=== PATIENT | female | born 1980 | race Caucasian/White ===

== ENCOUNTER 2016-05-11 12:31 | Emergency (ER) | payer SELFPAY ==
[2016-05-11 13:03] LABS: URINE BILIRUBIN NEGATIVE (NEGATIVE); URINE BLOOD TRACE (NEGATIVE); URINE GLUCOSE (UA) NEGATIVE (NEGATIVE); URINE LEUKOCYTE ESTERASE TRACE (NEGATIVE); URINE NITRITE NEGATIVE (NEGATIVE); URINE PROTEIN 1+ (NEGATIVE); URINE UROBILINOGEN 1 mg/dL (0-1 mg/dl)
[2016-05-11 13:06] LABS: URINE APPEARANCE CLEAR; URINE COLOR AMBER
[2016-05-11 13:07] LABS: HCG,QUALITATIVE URINE NEGATIVE
[2016-05-11] MEDS ORDERED: HYDROMORPHONE HCL 1 MG/ML SYRINGE ONE (13:09)
[2016-05-11] MEDS ORDERED: ONDANSETRON 4 MG/2ML 2 ML VIAL ONE (13:09)
[2016-05-11] MEDS ORDERED: LACTATED RINGERS 1,000 ML ONE (13:09)
[2016-05-11 13:16] LABS: URINE WBC 20-30 /hpf
[2016-05-11 13:17] LABS: URINE BACTERIA FEW
[2016-05-11 13:52] LABS: ABSOLUTE NEUTROPHIL COUNT 10.6 K/mm3 (1.8-7.7); BASO % 0.2 % (0.2-1.0); EOS % 0.1 % (0.9-2.9); HEMATOCRIT 38.5 % (37.0-47.0); HEMOGLOBIN 11.8 gm/l (12.0-16.0); IMM NEUT # 0.1 K/mm3 (0-0.2); IMM NEUT% 0.5 % (0-1); LYMPH # 1.2 (1.0-4.8); LYMPH % 9.3 % (15-45); MEAN CELL VOLUME 76.1 fl (81.0-99.0); MEAN CORPUSCULAR HEMOGLOBIN 23.3 pg (27.0-31.0); MEAN CORPUSCULAR HGB CONC 30.6 g/dl (33.0-37.0); MEAN PLATELET VOLUME 9.4 fl (7.4-10.4); MONO # 0.9 (0.0-0.8); MONO % 7.3 % (4-12); NEUT % 82.6 % (43-75); PLATELET COUNT 350 K/mm3 (130-400); RED CELL DISTRIBUTION WIDTH 14.3 % (11.5-14.5)
[2016-05-11 14:00] LABS: ALBUMIN 3.9 gm/dL (3.5-5.7); CALCIUM 9.2 mg/dL (8.6-10.3)
--- NOTE | 2016-05-11 14:20 | US ---
ABDOMINAL-LIMITED: 05/11/2016 1:29 PM CLINICAL HISTORY: Right upper quadrant pain extending to back for 3 days. Fever and nausea. Patient last ate at 0800 hours today. STUDY: Limited right upper quadrant ultrasound COMPARISON: none FINDINGS: Gallbladder: Wall thickness: Normal Cholelithiasis: none Pericholecystic Fluid: none Sonographic Boateng's Sign: Equivocal given pain medicine administration. Bile ducts: Common bile duct measures 3 mm. Limited visualized Liver and RUQ structures: normal IMPRESSION: No sonographic findings of cholelithiasis or acute cholecystitis as above. Report was uploaded to the electronic medical record at approximately 1416 hours on 05/11/2016.
--- NOTE | 2016-05-11 15:54 | CT ---
ABD/PELVIS W/O CON: 05/11/2016 3:22 PM INDICATION: Right flank pain since 05/09/2016. COMPARISON: Right upper quadrant ultrasound earlier on the same day. TECHNIQUE: Contiguous 3 mm transaxial images from a [id number] [address] scanner were obtained from the lung bases through the pubic symphysis without oral or intravenous contrast. Multiplanar images were created at the CT scanner. CT DI: 5.4 DLP: 281.3 FINDINGS: Lung base: Dependent and atelectatic changes are present at the lung bases. There is no pericardial effusion.. This examination is limited for the evaluation of solid organs and vascular structures due to the lack of intravenous contrast which is standard for urinary calculus assessment CT. Liver: Multiple hypodensities are present within the liver. Largest is seen within the lateral segment left lobe on axial image 23 measuring 1.4 x 1.2 cm. Findings are nonspecific though in a patient of this age cyst or hemangioma is most likely the cause of these hypodensities.. Gallbladder: Normal Spleen: Normal. Pancreas: Normal. Adrenal Glands: Normal. Right kidney & ureter: - Calculi - No . - Ureter Calculi - No. - Obstruction / hydronephrosis - No Left kidney & ureter: - Calculi - No . - Ureter Calculi- No . - Obstruction / hydronephrosis - No The unopacified stomach and bowel is within normal limits. Appendix is normal. No lymphadenopathy is seen in the abdomen or pelvis No free fluid in the abdomen or pelvis. Uterus and adnexa are unremarkable. Urinary bladder: -Bladder Calculi- No . - Bladder is distended adequately. - Wall is thin. Bone windows- No lytic or sclerotic lesions. Spine maintains anatomic alignment. IMPRESSION: 1. No urinary tract calculi. 2. Non-contrast evaluation of the abdomen and pelvis is otherwise notable for multiple hypodensities scattered throughout the liver. Findings are nonspecific given the lack of IV contrast though patient of this age statistically cyst or hemangioma would be expected. Ultrasound would be recommended for further assessment as an outpatient. Report was uploaded to the electronic medical record at approximately 1549 hours on 05/11/2016.
[2016-05-11] MEDS ORDERED: CEFTRIAXONE 1 GRAM DUPLEX 50 ML IV ONE (16:08)
[2016-05-13 13:31] LABS: CHLAMYDIA BD Negative (Negative); N.GONORRHOEAE BD Negative (Negative); SOURCE Urine (())
== END 2016-05-11 17:45 | disposition home or self-care (01) ==
LOC: ED 12:31
DX: R10.9 Unspecified abdominal pain (principal); R50.9 Fever, unspecified; R11.0 Nausea
CPT/HCPCS: 83605; 83690; 87491; 87591; 81025; 85025; 87040; 87086; 80053; 81001; 74176; 76705; 96375 ×2; 99283 ×2; 96361 ×3; 96365; J1170; J2405; J7120; J0696

== ENCOUNTER 2016-05-26 17:15 | Emergency (ER) | payer SELFPAY ==
--- NOTE | 2016-05-26 18:43 | RAD ---
FINGER LEFT COMPARISON: None HISTORY: Left little finger dislocation. FINDINGS: Views: Left little finger PA, oblique, lateral Bones: Displaced angled fracture at the proximal diaphysis of the proximal phalanx of the left little finger. Joints: Normal Soft tissues: Normal IMPRESSION: Displaced fracture, proximal phalanx of the left little finger.
[2016-05-26] MEDS ORDERED: HYDROCODONE/ACETAMINOPHEN 5/325MG TABLET ONE (19:01)
[2016-05-26] MEDS ORDERED: IBUPROFEN 600 MG TABLET ONE (19:01)
--- NOTE | 2016-05-27 08:15 | RAD ---
HAND LEFT 2 VIEWS HISTORY: Post reduction. COMPARISONS: Examination of the fifth ray on the same day. FINDINGS: 2 views of the left hand demonstrate interval reduction of the fracture involving the proximal left fifth proximal phalanx. The alignment is markedly improved without significant angulation. The remaining osseous structures are appropriate. IMPRESSION: 1. Improved alignment of the fracture involving the proximal aspect of the proximal phalanx of the left fifth ray.
== END 2016-05-26 19:49 | disposition home or self-care (01) ==
LOC: ED 17:15
DX: S62.617A Displaced fracture of proximal phalanx of left little finger, initial encounter for closed fracture (principal); Y09 Assault by unspecified means; Y92.009 Unspecified place in unspecified non-institutional (private) residence as the place of occurrence of the external cause
CPT/HCPCS: 73140; 73120; 99283 ×2; 26725 ×2; A9270 ×2